=== PATIENT | female | born 1990 | race Caucasian/White ===

== ENCOUNTER 2020-01-02 12:36 | Emergency (ER) | payer OTHER, SELFPAY ==
[2020-01-02 12:39] VITALS: BP 126/78; PULSE 101; RESP 20; TEMP 37; O2SAT 100
--- NOTE | 2020-01-02 13:00 | ED.GENADULT ---
HPI - General Adult General Chief complaint: Skin/Abscess/Foreign Body Stated complaint: pain, rash on left side Time Seen by Provider: 01/02/20 12:43 Source: patient Mode of arrival: ambulatory Limitations: no limitations History of Present Illness HPI narrative: 29-year-old female patient presents to the [facility] with complaints of a wound to the left upper abdomen that she first noticed today. Denies any fevers, body aches or chills. Patient denies any history of diabetes. Patient denies taking anything for wound pain. Patient denies any discharge coming from the wound. Related Data Home Medications Medication Instructions Recorded Confirmed sertraline [Zoloft] 100 mg PO DAILY 01/02/20 Allergies Allergy/AdvReac Type Severity Reaction Status Date / Time Penicillins Allergy Mild Swelling Verified 01/02/20 12:50 Review of Systems Review of Systems: Narrative: CONSTITUTIONAL: Denies fever, chills, or sweats. EYES: Denies visual changes, redness, or discharge. ENT: Denies rhinorrhea, congestion, sore throat, or otalgia. CARDIOVASCULAR: Denies chest pain, palpitations, or edema. RESPIRATORY: Denies cough or dyspnea. GASTROINTESTINAL: Denies abdominal pain, nausea, vomiting, or diarrhea. GENITOURINARY: Denies dysuria or hematuria. SKIN: Denies rash or itching. Positive wound to the left upper abdomen/under left breast that started this morning. MUSCULOSKELETAL: Denies back pain, joint pain, or myalgia. NEUROLOGIC: Denies headache, numbness, or weakness. PSYCHIATRIC: Denies anxiety or depression. [facility] Social History Social History Gender identity (if verbalized by the patient): Female Comments At the time of my signature I agree with nursing past medical history, surgical, social, and family history. There is no relevant family history pertinent to the presenting complaint. Exam Narrative: Exam Narrative: GENERAL: Well-appearing, well-nourished, and in no acute distress. HEAD: Normocephalic, atraumatic. EYES: PERRLA and EOMI. ENT: Nares clear, no rhinorrhea or epistaxis. Mucous membranes moist. NECK: Supple. No lymphadenopathy CHEST: Clear to auscultation. No respiratory distress. HEART: Regular rate and rhythm. No murmur heard. Normal peripheral pulses. ABDOMEN: Soft, nontender, nondistended, normal active bowel sounds. EXTREMITIES: Normal range of motion. No edema. SKIN: Warm, dry, no rash. Patient has a cellulitis area noted to the left upper abdomen right under the left breast approximately 5 cm circumference. It is slightly warm to the touch. Does appear that should there is a small scratch to the center of the area. No obvious abscess noted. NEURO: No focal deficits. Alert and oriented x3. Course Vital Signs Vital signs: Vital Signs Temperature 37.0 C 01/02/20 12:39 Pulse Rate 101 H 01/02/20 12:39 Respiratory Rate 01/02/20 12:39 Blood Pressure 126/78 01/02/20 12:39 Pulse Oximetry 100 01/02/20 12:39 Temperature 37.0 C 01/02/20 12:39 Pulse Rate 101 H 01/02/20 12:39 Respiratory Rate 01/02/20 12:39 Blood Pressure 126/78 01/02/20 12:39 Pulse Oximetry 100 01/02/20 12:39 Vital signs reviewed. Medical Decision Making Differential Diagnosis Differential Diagnosis: Differential diagnosis: Contact dermatitis, poison [place]ia, poison sumac, psoriasis, eczema, allergic reaction, drug reaction, scabies, tinea syphilis, lung disease, viral exanthema, pityriasis, erythema multiforme. Discussed with patient does appear to be most likely a cellulitis infection from probably a scratch that she had to the area. Discussed with patient we will discharge her home with some antibiotics for the infection and she should follow-up with her primary doctor as needed. Patient verbalized understanding denies any other questions or concerns at this time. Vital Signs Vital Signs: Vital Signs Temperature 37.0 C 01/02/20 12:39 Pu
[2020-01-02] MEDS: CLINDAMYCIN HCL 150 MG CAP 300 MG PO (13:26)
[2020-01-02 13:40] VITALS: BP 114/20; PULSE 95; RESP 20; O2SAT 100
== END 2020-01-02 13:42 | disposition home or self-care (01) ==
LOC: ANHED 13:16
PROVIDERS: Emergency Provider Nurse Practitioner Family
DX: L03.311 Cellulitis of abdominal wall (principal)
CPT/HCPCS: 99283; A9270

== ENCOUNTER 2020-01-03 22:46 | Observation (INO) | payer OTHER, SELFPAY ==
--- NOTE | ~2020-01-03 | US_ITS ---
EXAMINATION: US soft tissue abdomen DATE: 01/04/2020 12:16 INDICATION: Dominant wall cellulitis. TECHNIQUE: Multiple grayscale and Doppler ultrasound images of the region of concern at the left uppe r abdominal wall were obtained. COMPARISON: None FINDINGS: There is a small linear tract of decreased echogenicity extending obliquely 2.5 cm deep from the skin surface and measuring 3 x 5 mm in orthogonal dimensions. No evident associated radiopaque foreign cheryl dy. There is an approximately 8 mm long thin linear specular reflector in the subcutaneous fat along side the hypoechoic tract. The suspected foreign body is approximately 8 mm deep to the skin surface. Heterogeneous increased echogenicity of the stranding subcutaneous tissues suggesting edema. No drai nable abscess. IMPRESSION: 1. Hypoechoic tract in the subcutaneous fat extending through a region of edema consistent with given history of cellulitis. Suggestion of a faint 8 mm linear foreign body which could represent a splint er or needle fragment. Correlate clinically for history or signs of associated puncture injury. Reviewed, dictated and finalized at location A. IMPRESSION: 1. Hypoechoic tract in the subcutaneous fat extending through a region of edema consistent with given history of cellulitis. Suggestion of a faint 8 mm linear foreign body which could represent a splinter or needle fragment. Correlate cl inically for history or signs of associated puncture injury.
[2020-01-03 22:51] VITALS: BP 112/71; PULSE 117; RESP 15; TEMP 37.9; O2SAT 100
[2020-01-03] MEDS: SODIUM CHLORIDE 0.9% IV 1,000 ML 999 ML IV CONT (23:06)
--- NOTE | 2020-01-03 23:13 | ECG_ITS ---
Measurements Intervals [place] Rate: 112 P: 42 NC: 130 QRS: 18 QRSD: 98 T: 37 QT: 303 QTc: 415 Interpretive Statements SINUS TACHYCARDIA MINIMAL Q WAVES- HIGH LATERAL LEADS NONSPECIFIC ST & T-WAVE ABNORMALITY- DIFFUSE LEADS ABNORMAL ECG Electronically Signed On 01-04-2020 7:50:41 CDT by Loki Riggins D.O.
[2020-01-03 23:17] VITALS: BP 117/66; PULSE 109; RESP 16; TEMP 37.9; O2SAT 97
[2020-01-03 23:24] LABS: Basophils Percent Auto 0.2 % (0.2-1.2); Eosinophils Absolute Auto 0.2 K/mm3 (0-0.3); Eosinophils Percent Auto 1.1 % (0-4.4); Hematocrit 37.1 % (37.0-47.0); Hemoglobin 12.7 g/dL (12.0-15.0); Immature Granulocyte Absolute 0.07 K/mm3 (0.00-0.031); Immature Granulocyte Percent A 0.4 % (0-0.5); Lymphocytes Absolute Auto 0.88 K/mm3 (0.9-3.2); Lymphocytes Percent Auto 5.5 % (18.3-44.2); Mean Corpuscular HGB Conc 34.2 g/dl (32-36); Mean Corpuscular Hemoglobin 28.8 pg (26-34); Mean Corpuscular Volume 84.1 fl (80-100); Mean Platelet Volume 11.8 fl (7.4-10.4); Monocytes Absolute Auto 0.9 K/mm3 (0.1-0.6); Monocytes Percent Auto 5.6 % (2.6-8.5); Neutrophils Percent Auto 87.2 % (45.5-73.1); Platelet Count Result 200 k/mm3 (150-375); Red Blood Count 4.41 M/mm3 (4.2-5.4); Red Cell Distribution Width 12.5 % (11.5-14.5)
[2020-01-03 23:29] LABS: INR 1.1; Prothrombin Time 13.9 Seconds (11.1-14.7)
[2020-01-03 23:30] LABS: Partial Thromboplastin Time 27.8 SECONDS (22.3-36.8)
[2020-01-03 23:33] LABS: Alanine Aminotransferase 26 U/L (4-35); Albumin Level 4.1 g/dL (3.5-5.1); Alkaline Phosphatase 109 U/L (38-126); Aspartate Amino Transferase 35 U/L (14-36); Bilirubin,Total 0.5 mg/dL (0.2-1.3); Blood Urea Nitrogen 13 mg/dL (7-17); CRP 6.7 mg/dL (<1.0); Calcium 9.4 mg/dL (8.4-10.2); Carbon Dioxide 22 mmol/L (22-30); Chloride 103 mmol/L (98-107); Estimated Glomerular Filt Rate > 60; Glucose 125 mg/dL (65-105); Lactic Acid Reflex 1.3 mmol/L (0.7-2.1); Potassium 3.5 mmol/L (3.4-5.0); Sodium 136 mmol/L (137-145)
--- NOTE | 2020-01-03 23:45 | ED.FEVER ---
HPI - Fever General Chief Complaint: Fever Stated Complaint: Fever Time Seen by Provider: 01/03/20 23:01 History of Present Illness HPI Narrative: Patient is a 29-year-old female who presents the ER with a fever of 103 ?F. Seen yesterday for discomfort to her abdominal wall. Diagnosed with cellulitis. Started on clindamycin. She has been compliant with medication however her pain to abdominal wall is increased and she started developing high fever so she return the ER for further evaluation. No nausea/vomiting/shortness of breath. No drainage or pustules. Reports she had a little scrape that then became secondarily infected. Other individuals in her home have also had skin infections. Related Data Home Medications Medication Instructions Recorded Confirmed sertraline [Zoloft] 100 mg PO HS 01/02/20 01/04/20 ibuprofen 600 mg PO Q4-6H PRN 01/04/20 01/04/20 Allergies Allergy/AdvReac Type Severity Reaction Status Date / Time Penicillins Allergy Mild Swelling Verified 01/03/20 22:58 Review of Systems Review of Systems: All systems reviewed & are unremarkable except as noted in HPI and below Constitutional: Constitutional: Denies chills, Denies fatigue and Reports fever(s) Integumentary/Breasts: Skin/Breast: Reports erythema Comments: Abdominal wall pain PMFSH Past Medical History Medical History Anxiety Surgical History Surgical History Previous section Family History Family History Father Diabetes mellitus Hypertension Chronic obstructive pulmonary disease Lung cancer Mother Hypertension Social History Social History Years smoked: 1 Smoking status: Former smoker Tobacco type: cigarettes Alcohol intake: current Drinks per week: 3 Substance use type: marijuana Last use: unknown Gender identity (if verbalized by the patient): Female Spiritual care concerns: No Exam Narrative: Exam Narrative: GENERAL: Well-appearing, well-nourished, and in no acute distress. HEAD: Normocephalic, atraumatic. ENT: Mucous membranes moist. CHEST: Clear to auscultation. No respiratory distress. HEART: Regular rate and rhythm. Normal peripheral pulses. ABDOMEN: Soft, nontender, nondistended. EXTREMITIES: Normal range of motion. No edema. SKIN: Warm, dry. Cellulitis left anterior abdominal wall beneath the breast. Central area of skin breakdown without ulceration or purulent drainage. No fluctuance noted. The skin is hard and tender. NEURO: No focal deficits. Alert and oriented x3. PSYCH: Normal mood and affect. Course Course Emergency Course: Admit for IV abx. Vital Signs Vital signs: Vital Signs Temperature 100.2 F H 01/03/20 22:51 Pulse Rate 117 H 01/03/20 22:51 Respiratory Rate 15 01/03/20 22:51 Blood Pressure 112/71 01/03/20 22:51 Pulse Oximetry 100 01/03/20 22:51 Temperature 97.7 F 01/05/20 06:07 Pulse Rate 104 H 01/05/20 08:00 Respiratory Rate 16 01/05/20 08:00 Blood Pressure 108/67 01/05/20 06:07 Pulse Oximetry 95 01/05/20 08:00 MDM - Fever Lab Data Result diagrams: 01/05/20 07:52 01/05/20 07:52 Labs: Lab Results 01/03/20 01/03/20 01/03/20 Range/Units 23:08 23:08 23:08 WBC 16.0 H (4.5-10.0) K/mm3 RBC 4.41 (4.2-5.4) M/mm3 Hgb 12.7 (12.0-15.0) g/dL Hct 37.1 (37.0-47.0) % MCV 84.1 (80-100) fl MCH 28.8 (26-34) pg MCHC 34.2 (32-36) g/dl RDW 12.5 (11.5-14.5) % Plt Count 200 (150-375) k/mm3 MPV 11.8 H (7.4-10.4) fl Immature Gran % (Auto) 0.4 (0-0.5) % Neut % (Auto) 87.2 H (45.5-73.1) % Lymph % (Auto) 5.5 L (18.3-44.2) % [place] % (Auto) 5.6 (2.6-8.5) % Eos % (Auto) 1.1 (0-4.4) % Baso % (Auto) 0.2 (
[2020-01-04] VITALS (19 sets, daily range): BP systolic 99–131; BP diastolic 51–71; PULSE 82–137; RESP 15–20; TEMP 36.6–39.4; O2SAT 95–100; BMI 33.2
[2020-01-04] MEDS: ONDANSETRON INJ 4 MG/2 ML VIAL IV PUSH ×3 (00:19→11:32)
[2020-01-04] MEDS: MORPHINE SULFATE 4 MG/ML INJ IV PUSH ×4 (00:26→11:32)
--- NOTE | 2020-01-04 00:40 | ADMGEN ---
This patient, Narda Hawthorne, was admitted to Medical Room 340-01. Patient/family oriented to hospital policies and general routines including ID bracelet, bed and alarms, visiting hours, pain management, procedures, bathroom and other care routines, personal items, smoking policy, room service/diet, and visiting hours. Valuables list has been completed. Information on how to activate the Rapid Response Team has been discussed. Patient/Family are encouraged to report perceived risks to care and to ask questions if they do not understand what they are told or what they should do.
--- NOTE | 2020-01-04 03:09 | PM.IMHP ---
H&P: HPI History of Present Illness Chief complaint: Cellulitis Narrative: This is a 29 year old female known to take Sertraline for anxiety who presented to the hospital for a return visit for abdominal wall cellulitis. She was seen in the ER yesterday after she presented with redness of her LUQ and sent home with Clindamycin PO. Today she developed a fever of 103 degrees F and decided to come back to the hospital as her cellulitic area had worsened and become more swollen, indurated and painful. She has no previous history of skin infections although she reports that her daughter was just recently treated for a Staph infection which required I and D. She had some mild drainage from her cellulitis today. She denies any nausea, vomiting, diarrhea or other symptoms. The patient was admitted to the hospital for further care. Review of Systems Review of Systems: All systems reviewed & are unremarkable except as noted in HPI and below PMFSH Past Medical History Medical History Anxiety Surgical History Surgical History Previous section Family History Family History Father Diabetes mellitus Hypertension Chronic obstructive pulmonary disease Lung cancer Mother Hypertension Social History Social History Years smoked: 1 Smoking status: Former smoker Tobacco type: cigarettes Alcohol intake: current Drinks per week: 3 Substance use type: marijuana Last use: unknown Gender identity (if verbalized by the patient): Female Spiritual care concerns: No Meds Home Medications and Allergies Home Medications Medication Instructions Recorded Confirmed Type clindamycin HCl 300 mg PO BID 7 Days #14 cap 01/02/20 01/04/20 Rx sertraline [Zoloft] 100 mg PO HS 01/02/20 01/04/20 History ibuprofen 600 mg PO Q4-6H PRN 01/04/20 01/04/20 History Allergies Allergy/AdvReac Type Severity Reaction Status Date / Time Penicillins Allergy Mild Swelling Verified 01/03/20 22:58 Vital Signs Vital Signs - 24 hr 01/03/20 22:51 01/03/20 23:17 01/04/20 00:00 Temperature 37.9 C H 37.9 C H 37.4 C Pulse Rate 117 H 109 H 97 Respiratory Rate 15 16 18 Blood Pressure 112/71 117/66 129/69 Pulse Oximetry 100 97 97 01/04/20 00:45 Temperature 37.3 C Pulse Rate 102 H Respiratory Rate 16 Blood Pressure 118/68 Pulse Oximetry 99 Exam Const: General: cooperative, alert and awake Nutritional Appearance: well nourished Orientation/consciousness: patient oriented x3 HENMT: Head: normal to inspection General nose exam: Normal external nose present Face and sinus: normal facial exam Mouth: Yes Normal oral and palatal mucosa present and Yes oropharynx normal Eyes: Pupils: Equal, round and reactive pupils present EOM: EOMs intact bilaterally Neck: Neck: supple and no JVD Thyroid: thyroid normal Lymphatic: lymphadenopathy not noted Resp: Effort & Inspection: normal respiratory effort Auscultation: clear to auscultation bilaterally Cardio: Rate: regular rate Rhythm: regular rhythm Heart sounds: no murmurs GI: Inspection: normal to inspection Auscultation: normal bowel sounds Skin: General skin exam: other (LUQ - area of 5x7 cm which is erythematous and indurated++ Tender to touch) Neuro: Cranial nerves: Yes CN's II-XII intact bilaterally and Yes Equal, round and reactive pupils present Speech: normal speech Motor exam (neuro): 5/5 motor strength present throughout Sensory Exam: normal sensation Extrem: General: normal to inspection and no edema Psych: Mental Status: mental status grossly normal Affect: normal affect H&P: Results Labs Labs: Short CBC 01/03/20 Range/Units 23:08 WBC 16.0 H (4.5-10.0) K/mm3 Hgb 12.7 (12.0-15.0) g/dL Hct 37.1 (37.0-47.0) % Plt
[2020-01-04 06:09] LABS: Basophils Percent Auto 0.2 % (0.2-1.2); Eosinophils Absolute Auto 0.3 K/mm3 (0-0.3); Eosinophils Percent Auto 1.6 % (0-4.4); Hematocrit 34.7 % (37.0-47.0); Hemoglobin 11.6 g/dL (12.0-15.0); Immature Granulocyte Absolute 0.13 K/mm3 (0.00-0.031); Immature Granulocyte Percent A 0.8 % (0-0.5); Lymphocytes Absolute Auto 2.02 K/mm3 (0.9-3.2); Lymphocytes Percent Auto 12.1 % (18.3-44.2); Mean Corpuscular HGB Conc 33.4 g/dl (32-36); Mean Corpuscular Hemoglobin 28.8 pg (26-34); Mean Corpuscular Volume 86.1 fl (80-100); Mean Platelet Volume 11.3 fl (7.4-10.4); Monocytes Absolute Auto 1.1 K/mm3 (0.1-0.6); Monocytes Percent Auto 6.7 % (2.6-8.5); Neutrophils Absolute Auto 13.2 K/mm3 (1.3-6.7); Neutrophils Percent Auto 78.6 % (45.5-73.1); Platelet Count Result 181 k/mm3 (150-375); Red Blood Count 4.03 M/mm3 (4.2-5.4); Red Cell Distribution Width 12.5 % (11.5-14.5); White Blood Count 16.8 K/mm3 (4.5-10.0)
[2020-01-04 06:20] LABS: Blood Urea Nitrogen 11 mg/dL (7-17); Calcium 8.6 mg/dL (8.4-10.2); Carbon Dioxide 26 mmol/L (22-30); Chloride 105 mmol/L (98-107); Estimated CRCL calculation 106 ml/min; Estimated Glomerular Filt Rate > 60; Glucose 104 mg/dL (65-105); Potassium 3.6 mmol/L (3.4-5.0); Sodium 136 mmol/L (137-145)
--- NOTE | 2020-01-04 09:09 | PM.CNGS ---
Assessment and Plan Assessment and plan (1) Abscess of abdominal wall: Code(s): L02.211 - Cutaneous abscess of abdominal wall Status: Acute Assessment and Plan: Will get ultrasound to further defined abscess, continue antibiotics, will need surgical drainage (2) Leukocytosis: Qualifiers: Leukocytosis type: unspecified Qualified Code(s): D72.829 - Elevated white blood cell count, unspecified Code(s): D72.829 - Elevated white blood cell count, unspecified Status: Acute Assessment and Plan: continue IV antibiotics, will plan surgical drainage in the operating (3) Anxiety: Code(s): F41.9 - Anxiety disorder, unspecified Status: Chronic Assessment and Plan: management per primary team History of Present Illness Consult details Consult date: 01/04/20 Reason for consult: wound care Requesting physician: Tani Hyatt MD Narrative: Patient is a 29-year-old female presenting to the hospital complaining of pain and swelling in her left upper abdominal wall. The patient reports that this has been going on over the last few days and has been progressively worsening. The patient reports that it started with some redness in her left upper abdominal wall and has now progressed to severe swelling and pain. The patient also reports some mild purulence drainage over the last day. Patient reports fevers up to 103 at home. The patient was started on antibiotics, however no improvement was noted. The patient denies any previous episodes. Review of Systems Constitutional: Constitutional: Denies anorexia, Reports chills, Denies fatigue, Denies headache(s), Denies malaise, Denies poor appetite, Denies weakness, Denies weight gain and Denies weight loss Eyes: Eyes: Reports no additional eye complaints and Denies loss of vision ENT: Reports Normal hearing present, Denies dysphagia, Denies headache(s), Denies hearing loss and Denies sore throat Cardiovascular: Cardiovascular: Denies chest pain, Denies syncope, Denies irregular heart rhythm, Denies leg edema, Denies palpitations and Denies dyspnea Respiratory: Respiratory: Denies cough and Denies dyspnea Gastrointestinal: Gastrointestinal: Reports abdominal pain, Denies bloating, Denies change in bowel habits, Denies change in stool character, Denies constipation, Denies dysphagia, Denies heartburn, Denies diarrhea, Denies nausea and Denies vomiting Genitourinary: Genitourinary: Denies urinary frequency, Denies dysuria and Denies urinary urgency Musculoskeletal: Musculoskeletal: Denies myalgias, Denies arthralgias and Denies muscle cramps Integumentary/Breasts: Skin/Breast: Denies non-healing lesions, Reports erythema, Denies rash and Reports wounds Neurologic: Denies syncope, Denies headache(s) and Denies loss of vision Endocrine: Endocrine: Denies change in body appearance and Denies fatigue Hematologic/Lymphatic: Hematologic/Lymphatic: Denies easy bleeding, Denies easy bruising and Denies lymphadenopathy PMFSH Past Medical History Medical History Anxiety Surgical History Surgical History Previous section Family History Family History Father Diabetes mellitus Hypertension Chronic obstructive pulmonary disease Lung cancer Mother Hypertension Social History Social History Years smoked: 1 Smoking status: Former smoker Tobacco type: cigarettes Alcohol intake: current Drinks per week: 3 Substance use type: marijuana Last use: unknown Gender identity (if verbalized by the patient): Female Spiritual care concerns: No Meds Home Medications and Allergies Home Medications Medication Instructions Recorded Confirmed Type clindamycin HCl 300 mg PO BID 7 Days #14 c
[2020-01-04 11:18] LABS: Beta HCG Quantitative < 2.39 mIU/ML
--- NOTE | 2020-01-04 12:45 | PC.NURSE ---
Verbal report given to [facility] RN and patient taken to OR via bed. Spouse at bedside. Voiding without difficulty.
[2020-01-04] MEDS: LACTATED RINGERS 1,000 ML 30 ML IV CONT ×2 (13:00→15:03)
--- NOTE | 2020-01-04 13:11 | WPDANESEPPF ---
Anes - Initial Pre Proc Eval Procedure: Operation Date: 01/04/20 14:00 Proposed Procedures p COMPLEX INCISION AND DRAINAGE OF LEFT UPPER ABDOMINAL WALL ABSCESS - Gay Ingram MD Date/Time: 01/04/20 13:11 Surgeon: Tani Hyatt MD Pre Op Diagnosis: Cellulitis Patient Data Age: 29 Gender: F Height: 5 ft 3 in Weight: 85.1 kg Last Vital Signs Temp 36.7 C 01/04/20 04:15 Pulse 82 01/04/20 04:15 Resp 16 01/04/20 08:15 BP 116/51 L 01/04/20 04:15 Pulse Ox 100 01/04/20 08:15 Allergies Allergy/AdvReac Type Severity Reaction Status Date / Time Penicillins Allergy Mild Swelling Verified 01/03/20 22:58 Home Medications Medication Instructions Recorded Confirmed Type clindamycin HCl 300 mg PO BID 7 Days #14 cap 01/02/20 01/04/20 Rx sertraline [Zoloft] 100 mg PO HS 01/02/20 01/04/20 History ibuprofen 600 mg PO Q4-6H PRN 01/04/20 01/04/20 History Laboratory Tests 01/03/20 01/03/20 01/03/20 23:08 23:08 23:08 WBC 16.0 K/mm3 H K/mm3 (4.5-10.0) RBC 4.41 M/mm3 M/mm3 (4.2-5.4) Hgb 12.7 g/dL g/dL (12.0-15.0) Hct 37.1 % % (37.0-47.0) MCV 84.1 fl fl (80-100) MCH 28.8 pg pg (26-34) MCHC 34.2 g/dl g/dl (32-36) RDW 12.5 % % (11.5-14.5) Plt Count 200 k/mm3 k/mm3 (150-375) MPV 11.8 fl H fl (7.4-10.4) Immature Gran % (Auto) 0.4 % % (0-0.5) Neut % (Auto) 87.2 % H % (45.5-73.1) Lymph % (Auto) 5.5 % L % (18.3-44.2) [place] % (Auto) 5.6 % % (2.6-8.5) Eos % (Auto) 1.1 % % (0-4.4) Baso % (Auto) 0.2 % % (0.2-1.2) Lymph # (Auto) 0.88 K/mm3 L K/mm3 (0.9-3.2) [place] # (Auto) 0.9 K/mm3 H K/mm3 (0.1-0.6) Eos # (Auto) 0.2 K/mm3 K/mm3 (0-0.3) Baso # (Auto) 0.0 K/mm3 K/mm3 (0.0-0.1) Abs Immat Gran (auto) 0.07 K/mm3 H K/mm3 (0.00-0.031) Absolute Neuts (auto) 14.0 K/mm3 H K/mm3 (1.3-6.7) Absolute Nucleated RBC 0.0 K/mm3 K/mm3 (0.0-0.012) Nucleated RBC % 0.0 % % (0.0-0.2) PT 13.9 Seconds Seconds (11.1-14.7) INR 1.1 APTT 27.8 SECONDS SECONDS (22.3-36.8) Sodium 136 mmol/L L mmol/L (137-145) Potassium 3.5 mmol/L mmol/L (3.4-5.0) Chloride 103 mmol/L mmol/L (98-107) Carbon Dioxide 22 mmol/L mmol/L (22-30) BUN 13 mg/dL mg/dL (7-17) Creatinine 0.80 mg/dL mg/dL (0.7-1.0) Estim Creat Clear Calc Not Reportable Estimated GFR > 60 (59 - ) Glucose 125 mg/dL H mg/dL (65-105) Lactic Acid Calcium 9.4 mg/dL mg/dL (8.4-10.2) Total Bilirubin 0.5 mg/dL mg/dL (0.2-1.3) AST 35 U/L U/L (14-36) ALT 26 U/L U/L (4-35) Alkaline Phosphatase 109 U/L U/L (38-126) C-Reactive Protein 6.7 mg/dL H mg/dL (<1.0) Total Protein 7.0 g/dL g/dL (6.3-8.2) Albumin 4.1 g/dL g/dL (3.5-5.1) Beta HCG, Quant 01/03/20 01/04/20 01/04/20 23:08 05:52 05:54 WBC 16.8 K/mm3 H K/mm3 (4.5-10.0) RBC 4.03 M/mm3 L M/mm3 (4.2-5.4) Hgb 11.6 g/dL L g/dL (12.0-15.0) Hct 34.7 % L % (37.0-47.0) MCV 86.1 fl fl (80-100) MCH 28.8 pg pg (26-34) MCHC 33.4 g/dl g/dl (32-36) RDW 12.5 % % (11.5-14.5) Plt Count 181 k/mm3 k/mm3 (150-375) MPV 11.3 fl H fl (7.4-10.4) Immature Gran % (Auto) 0.8 % H % (0-0.5) Neut % (Auto) 78.6 % H % (45.5-73.1) Lymph % (Auto) 12.1 % L % (18.3-44.2) [place] % (Auto) 6.7 % % (2.6-8.5) Eos % (Auto) 1.6 % % (0-4.4) Baso % (Auto) 0.2 % % (0.2-1.2) Lymph # (Auto) 2.02 K/mm3 K/mm3 (0.9-3.2) [place] # (Auto) 1.1 K/mm3 H K/mm3
[2020-01-04] MEDS: BUPIVACAINE/EPINEPHRINE 0.5% 30 ML VIAL 20 ML INFILTRATE (14:36)
--- NOTE | 2020-01-04 14:36 | SUR.OPER ---
culture given to thompson in lab at 0931
--- NOTE | 2020-01-04 14:47 | PM.PROC ---
Procedure Note - Detailed Date of procedure: 01/04/20 Pre-op diagnosis: Cellulitis left upper quadrant abdominal wall abscess, cellulitis Post-op diagnosis: same Procedure performed: complex incision and drainage left upper quadrant abdominal wall abscess measuring approximately 12 x 10 cm Description of procedure: The patient was taken to the operating room placed in the supine position. After adequate induction of general anesthesia, the patient was prepped and draped in the normal sterile fashion. A time-out was then done to verify the patient's identity, as well as the procedure being performed. I began by localizing the area in and around this large abscess in the left upper quadrant. There was noted to be an area of necrosis in the middle of this abscess that was draining some purulent fluid. I made an incision with a 15 blade scalpel over this area and immediately a large amount of purulent drainage was noted. I obtained sterile cultures at this point. I then used a hemostat to bluntly dissect around this cavity and broke up some loculations and further purulent drainage was noted. A large amount of fat necrosis was also noted. This cavity was noted to encompass the subcutaneous tissue and overlying skin however, did not involve the underlying fascia or muscle. The final measurements of the cavity were approximately 12 x 10 x 6 cm. Once the area was fully open and draining, I copiously irrigated the cavity. I then packed the cavity with 1 in iodoform packing to keep the area open, approximately 3-1/2 feet packing was used. Sterile dressing was then placed. Patient tolerated the procedure well and will be transferred to the recovery room in stable condition. Implants: 3-1/2 feet 1 in iodoform packing Anesthesia: GETA Surgeon: Gay Ingram MD Estimated blood loss (mL): 5 Drains: No Packing: Yes Pathology: none sent Complications: No immediate complications Condition: stable Disposition: PACU Findings: large cavity measuring approximately 12 x 10 x 6 cm, large amount of purulence drainage, fat necrosis
--- NOTE | 2020-01-04 15:26 | SUR.PHASEI ---
1525 pt running a fever 101.2-102 post surgery, cool rags on pt getting iv fluids, hr-115-125, b p stable headache 4/[address] sales notified, treat upstairs with po tylenol
--- NOTE | 2020-01-04 15:30 | SUR.PHASEI ---
1530 sbar faxed floor notified
--- NOTE | 2020-01-04 15:32 | PM.IMPN ---
Progress Note: A&P Assessment and Plan (1) Cellulitis of abdominal wall: Code(s): L03.311 - Cellulitis of abdominal wall Status: Acute Assessment and Plan: Ancef IV given initially but will switch to vancomycin to cover for MRSA also., General Surgery took to OR today for I and D. Blood cultures pending. Blood sugar borderline so check A1c (2) Anxiety: Code(s): F41.9 - Anxiety disorder, unspecified Status: Chronic Assessment and Plan: Continue Sertraline PO. (3) Sepsis: Code(s): A41.9 - Sepsis, unspecified organism Status: Acute Assessment and Plan: With leukocytosis, tachycardia, and now fevers she meets the criteria for sepsis. Pressure well controlled continue to monitor Subjective Date/time seen: 01/04/20 15:32 Interval history: Date of visit 01/03. 29-year-old healthy white female admitted with cellulitis and abscess of left upper abdominal wall with no precipitating factors noted. Surgery has seen and taken to the OR today for I and D Exam Narrative: Exam Narrative: Blood pressure 114/62 pulse is 110 afebrile at 36.6 Pupils equal reactive to light sclera anicteric Lungs clear CV regular rate rhythm tachy with no murmurs Abdomen is soft bowel sounds normal active in the left upper quadrant just under the costal margin person indurated tender area with small amount of drainage probably at least 6 x 8 cm Extremities without edema distal pulses are 2+ Objective Data Vital Signs Vital Signs: Vital Signs - 24 hr 01/03/20 22:51 01/03/20 23:17 01/04/20 00:00 Temperature 37.9 C H 37.9 C H 37.4 C Pulse Rate 117 H 109 H 97 Respiratory Rate 15 16 18 Blood Pressure 112/71 117/66 129/69 Pulse Oximetry 100 97 97 01/04/20 00:45 01/04/20 04:15 01/04/20 08:15 Temperature 37.3 C 36.7 C Pulse Rate 102 H 82 Respiratory Rate 16 16 16 Blood Pressure 118/68 116/51 L Pulse Oximetry 99 100 100 01/04/20 13:00 01/04/20 14:40 01/04/20 14:55 Temperature 38.1 C H 36.6 C Pulse Rate 137 H 116 H 115 H Respiratory Rate 18 16 20 Blood Pressure 111/71 99/52 L 100/55 L Pulse Oximetry 97 98 100 01/04/20 15:00 01/04/20 15:15 Temperature Pulse Rate 122 H 124 H Respiratory Rate 20 18 Blood Pressure 109/58 L 114/63 Pulse Oximetry 100 99 Intake/Output Intake/Output: Intake & Output 01/01/20 01/02/20 01/03/20 01/04/20 23:59 23:59 23:59 23:59 Intake Total 2350 Output Total 750 Balance 1600 Meds/Results Medications: Active Medications Generic Name Dose Route Start Last Admin Trade Name Freq PRN Reason Stop Dose Admin Acetaminophen 650 mg 01/03/20 23:56 Tylenol Tablet PO Q4H PRN Mild Pain (1-3) or Fever Hydrocodone Bitart/Acetaminophen 1 tab 01/03/20 23:56 01/04/20 06:25 [place] 5-325 Mg PO 1 tab Q4H PRN Administration Pain Rated 4-6 Fentanyl Citrate 25 mcg 01/04/20 13:12 01/04/20 15:17 Sublimaze IV PUSH 25 mcg Q2M PRN Administration Pain Cefazolin Sodium 1 gm in 50 mls @ 100 mls/hr 01/04/20 06:00 01/04/20 14:35 Ancef 1 Gm/D5w 50 Ml Pm IVPB Infused Q8HR MIAH Infusion Lactated Ringer's 1,000 mls @ 30 mls/hr 01/04/20 13:15 01/04/20 15:02 Lr - Lactated Ringers Iv IV CONT Infused .Q24H MIAH Infusion Lactated Ringer's 1,000 mls @ 30 mls/hr 01/04/20 13:15 01/04/20 15:03 Lr - Lactated Ringers Iv IV CONT 30 mls/hr .Q24H MIAH Administration Morphine Sulfate 4 mg 01/03/20 23:56 01/04/20 11:32 Morphine Sulfate Inj IV PUSH 4 mg Q2H PRN Administration Pain Rated 7-10 Ondansetron HCl 4 mg 01/03/20 23:56 01/04/20 11:32 Zofran Inj IV PUSH 4 mg Q4H PRN Administration Nausea Ondansetron HCl 4 mg 01/04/20 13:12 Zofran Inj IV PUSH ONCE PRN Nausea Sertraline HCl 100 mg 01/04/20 21:00 Zoloft PO HS MIAH Radiology Results: ITS Impressions Soft Tissue Ultrasound 01/04/20 12:21 IMPRESSION: 1. Hypoechoic tract
--- NOTE | 2020-01-04 15:55 | PCDIET ---
Returned from OR via bed. at bedside.
[2020-01-04] MEDS: ACETAMINOPHEN 325 MG TABLET 650 MG PO (16:12)
[2020-01-04] MEDS: ENOXAPARIN 40 MG/0.4 ML SYRINGE SUB-Q (20:24)
[2020-01-04] MEDS: SERTRALINE HCL 50 MG TABLET 100 MG PO (20:24)
[2020-01-05 00:15] VITALS: BP 129/63; PULSE 102; RESP 20; TEMP 37.2; O2SAT 97
[2020-01-05 06:07] VITALS: BP 108/67; PULSE 104; RESP 16; TEMP 36.5; O2SAT 95
[2020-01-05 08:00] VITALS: PULSE 104; RESP 16; O2SAT 95
[2020-01-05 08:15] LABS: Basophils Percent Auto 0.1 % (0.2-1.2); Eosinophils Absolute Auto 0.1 K/mm3 (0-0.3); Eosinophils Percent Auto 0.8 % (0-4.4); Hematocrit 33.2 % (37.0-47.0); Hemoglobin 11.2 g/dL (12.0-15.0); Immature Granulocyte Absolute 0.15 K/mm3 (0.00-0.031); Immature Granulocyte Percent A 0.9 % (0-0.5); Lymphocytes Absolute Auto 0.78 K/mm3 (0.9-3.2); Lymphocytes Percent Auto 4.7 % (18.3-44.2); Mean Corpuscular HGB Conc 33.7 g/dl (32-36); Mean Corpuscular Hemoglobin 28.9 pg (26-34); Mean Corpuscular Volume 85.6 fl (80-100); Mean Platelet Volume 11.5 fl (7.4-10.4); Monocytes Absolute Auto 0.9 K/mm3 (0.1-0.6); Monocytes Percent Auto 5.3 % (2.6-8.5); Neutrophils Absolute Auto 14.5 K/mm3 (1.3-6.7); Neutrophils Percent Auto 88.2 % (45.5-73.1); Platelet Count Result 179 k/mm3 (150-375); Red Blood Count 3.88 M/mm3 (4.2-5.4); Red Cell Distribution Width 12.4 % (11.5-14.5); White Blood Count 16.4 K/mm3 (4.5-10.0)
[2020-01-05 08:23] LABS: Blood Urea Nitrogen 10 mg/dL (7-17); Calcium 8.2 mg/dL (8.4-10.2); Carbon Dioxide 27 mmol/L (22-30); Chloride 102 mmol/L (98-107); Estimated CRCL calculation 122 ml/min; Estimated Glomerular Filt Rate > 60; Glucose 121 mg/dL (65-105); Potassium 3.3 mmol/L (3.4-5.0); Sodium 136 mmol/L (137-145)
[2020-01-05] MEDS: CEPHALEXIN 500 MG CAPSULE PO (09:02)
--- NOTE | 2020-01-05 09:15 | PM.PNGS ---
Progress Note: A&P Assessment and Plan (1) Abscess of abdominal wall: Code(s): L02.211 - Cutaneous abscess of abdominal wall Status: Acute Assessment and Plan: doing well. Okay to discharge from surgical standpoint. No need for vancomycin. Will start patient on Keflex while in the hospital. She can go home on this or continue the clindamycin she was on before coming to the hospital. She should see Dr. Ingram in 2 weeks. Continue daily dry dressings to left upper quadrant wound. No need for packing. May shower daily. Discharge instructions written. Subjective Subjective Date/Time Seen: 01/05/20 09:15 Post Op day: 1 Patient reports: feels better Exam GI: Inspection: incision ( Packing removed, abscess well drained. Looks good) Objective Data Vital Signs Vital Signs: Vital Signs - 24 hr 01/04/20 13:00 01/04/20 14:40 01/04/20 14:55 Temperature 38.1 C H 36.6 C Pulse Rate 137 H 116 H 115 H Respiratory Rate 18 16 20 Blood Pressure 111/71 99/52 L 100/55 L Pulse Oximetry 97 98 100 01/04/20 15:00 01/04/20 15:15 01/04/20 15:30 Temperature 38.4 C H Pulse Rate 122 H 124 H 120 H Respiratory Rate 20 18 17 Blood Pressure 109/58 L 114/63 113/56 L Pulse Oximetry 100 99 100 01/04/20 15:55 01/04/20 16:05 01/04/20 16:10 Temperature 39.4 C H Pulse Rate 126 H 132 H 132 H Respiratory Rate 18 18 18 Blood Pressure 131/57 L 117/60 Pulse Oximetry 100 97 97 01/04/20 16:12 01/04/20 16:40 01/04/20 17:10 Temperature 39.4 C H 38.2 C H Pulse Rate 135 H Respiratory Rate 16 Blood Pressure 100/61 Pulse Oximetry 96 01/04/20 17:47 01/04/20 20:35 01/04/20 21:31 Temperature 38.2 C H 36.6 C Pulse Rate 127 H 100 100 Respiratory Rate 18 15 15 Blood Pressure 108/61 113/58 L Pulse Oximetry 97 95 95 01/05/20 00:15 01/05/20 06:07 Temperature 37.2 C 36.5 C Pulse Rate 102 H 104 H Respiratory Rate 20 16 Blood Pressure 129/63 108/67 Pulse Oximetry 97 95 Intake/Output Intake/Output: Intake & Output 01/02/20 01/03/20 01/04/20 01/05/20 23:59 23:59 23:59 23:59 Intake Total 3880 1080 Output Total 1150 1050 Balance 2730 30 Meds/Results Medications: Active Medications Generic Name Dose Route Start Last Admin Trade Name Freq PRN Reason Stop Dose Admin Acetaminophen 650 mg 01/03/20 23:56 01/04/20 16:12 Tylenol Tablet PO 650 mg Q4H PRN Administration Mild Pain (1-3) or Fever Hydrocodone Bitart/Acetaminophen 1 tab 01/03/20 23:56 01/05/20 09:06 [place] 5-325 Mg PO 1 tab Q4H PRN Administration Pain Rated 4-6 Enoxaparin Sodium 40 mg 01/04/20 21:00 01/04/20 20:24 Lovenox SUB-Q 40 mg HS MIAH Administration Ondansetron HCl 4 mg 01/03/20 23:56 01/04/20 11:32 Zofran Inj IV PUSH 4 mg Q4H PRN Administration Nausea Sertraline HCl 100 mg 01/04/20 21:00 01/04/20 20:24 Zoloft PO 100 mg HS MIAH Administration Radiology Results: ITS Impressions Soft Tissue Ultrasound 01/04/20 12:21 IMPRESSION: 1. Hypoechoic tract in the subcutaneous fat extending through a region of edema consistent with given history of cellulitis. Suggestion of a faint 8 mm linear foreign body which could represent a splinter or needle fragment. Correlate clinically for history or signs of associated puncture injury. Labs Labs: Laboratory Results - last 24 hr 01/04/20 01/05/20 01/05/20 05:52 07:52 07:52 WBC 16.4 H RBC 3.88 L Hgb 11.2 L Hct 33.2 L MCV 85.6 MCH 28.9 MCHC 33.7 RDW 12.4 Plt Count 179 MPV 11.5 H Immature Gran % (Auto) 0.9 H Neut % (Auto) 88.2 H Lymph % (Auto) 4.7 L [place] % (Auto) 5.3 Eos % (Auto) 0.8 Baso % (Auto) 0.1 L Lymph # (Auto) 0.78 L [place] # (Auto) 0.9 H Eos # (Auto) 0.1 Baso # (Auto) 0.0 Abs Immat Gran (auto) 0.15 H Absolute Neuts (auto) 14.5 H Absolute Nucleated RBC 0.0 Nucleated RBC % 0.0 Sodium 136 L Potassium
[2020-01-05] MEDS: POTASSIUM CHLORIDE 20 MEQ TABLET 40 MEQ PO (11:44)
--- NOTE | 2020-01-05 12:46 | PM.DS ---
DS: Admitting Diagnosis Admitting Diagnosis Admitting Diagnosis: Cellulitis of abdominal wall DS: Discharge Diagnosis Discharge Diagnosis (1) Cellulitis of abdominal wall: Code(s): L03.311 - Cellulitis of abdominal wall Status: Acute Assessment and Plan: Ancef IV given initially but switched to vancomycin to cover for MRSA also., General Surgery took to OR today for I and D. Blood cultures pending. Surgery saw today 01/04 and wound healing well. Recommended oral antibiotics and local care without packing. Discharge with cephalexin 500 Q 6 to follow-up if surgery within 2 weeks. Also she was instructed on proper wound care Hemoglobin A1c 5.0. (2) Anxiety: Code(s): F41.9 - Anxiety disorder, unspecified Status: Chronic Assessment and Plan: Continue Sertraline PO. (3) Sepsis: Code(s): A41.9 - Sepsis, unspecified organism Status: Acute Assessment and Plan: With leukocytosis, tachycardia, and fevers she met the criteria for sepsis. Pressure good with no hypotension DS: Summary Hospital Course Hospital Course: 29-year-old white female admitted with painful cellulitis and abscess of left upper quadrant. Taken to the OR by surgery on the and found to have 10 x 8 x 6 cm abscess cavity that was drained, cultured, washed out, and packed. Seen by surgery a.m. of the 18 thin doing well on fell could be discharged home with simple dressing changes to follow-up with surgery in 2 weeks. Cultures were pending and she will be discharged on cephalexin 500 q.i.d.. Hemoglobin A1c was 5.0 The time of discharge pain is subsided she is feeling much better ,afebrile for the 24 hours prior to discharge Time Spent with Patient Time attestation: Total time spent providing and/or coordinating discharge services:35 minutes Exam Narrative: Exam Narrative: Condition on discharge Blood pressure 108/66 pulse is 100 afebrile at 36.5 Lung is clear CV regular rate rhythm no murmurs Abdomen soft nontender with bandage over previously drained a lesion on left upper quadrant Extremities without edema Neuro alert pleasant cooperative no focal deficits Of relates that feels much better than yesterday tolerating diet well DS: Data Data Completed and Pending Labs on day of discharge: Labs from last 24 hours 01/05/20 01/05/20 01/05/20 07:52 07:52 07:52 WBC 16.4 H RBC 3.88 L Hgb 11.2 L Hct 33.2 L MCV 85.6 MCH 28.9 MCHC 33.7 RDW 12.4 Plt Count 179 MPV 11.5 H Immature Gran % (Auto) 0.9 H Neut % (Auto) 88.2 H Lymph % (Auto) 4.7 L [place] % (Auto) 5.3 Eos % (Auto) 0.8 Baso % (Auto) 0.1 L Lymph # (Auto) 0.78 L [place] # (Auto) 0.9 H Eos # (Auto) 0.1 Baso # (Auto) 0.0 Abs Immat Gran (auto) 0.15 H Absolute Neuts (auto) 14.5 H Absolute Nucleated RBC 0.0 Nucleated RBC % 0.0 Sodium 136 L Potassium 3.3 L Chloride 102 Carbon Dioxide 27 BUN 10 Creatinine 0.60 L Estim Creat Clear Calc 122 Estimated GFR > 60 Glucose 121 H Hemoglobin A1c 5.0 Calcium 8.2 L Preliminary micro results at discharge 01/03/20 23:08 Blood Culture - Preliminary Blood 01/03/20 23:08 Blood Culture - Preliminary Blood Discharge Plan Discharge Attending physician on discharge: Yung Estrada Consulting providers: Aubrey Dias ; Gay Ingram Discharging Clinician: Yung Estrada Patient Disposition: Home, Self-Care Activity: may shower and as tolerated Diet: regular Wound Care Instructions: keep dressing dry, remove dressing to shower and change dressing daily Discharge Instructions: Daily dry gauze dressing to left upper quadrant wound. Remove to shower and replace after. Wash wound with soap and water when showering. Patient Instructions: Antibiotic Form, Cefazolin (By injection), Cellulitis (DC), Pain Management (DC) Stand Alone Forms: General Discharge Inf
== END 2020-01-05 11:50 | disposition home or self-care (01) ==
LOC: ANHED 23:59 → ANH3MED 01-04 04:34
PROVIDERS: Anesthesiology; Surgery; Admitting Provider Family Medicine; Emergency Provider Emergency Medicine; Visit Provider Internal Medicine
PROC: (CPT 10061; principal; 2020-01-04 14:00)
DX: A41.9 Sepsis, unspecified organism (principal); L02.211 Cutaneous abscess of abdominal wall; L03.311 Cellulitis of abdominal wall; F41.9 Anxiety disorder, unspecified; Z87.891 Personal history of nicotine dependence; E66.9 Obesity, unspecified; Z68.33 Body mass index [BMI] 33.0-33.9, adult
CPT/HCPCS: 10061; 36415; 76705; 80048; 80053; 83036; 83605; 84702; 85025; 85610; 85730; 86140; 87040; 87070; 87075; 87147; 87186; 87205; 93005; 96361; 96365; 96366; 96367; 96372; 96375; 96376; 99285; A9270; G0378; G0379; J0690; J1100; J1650; J2250; J2270; J2405; J2704; J3010; J3370; J7030; J7120

== ENCOUNTER 2022-12-30 11:59 | Emergency (ER) | payer OTHER, MEDICAID, SELFPAY ==
--- NOTE | ~2022-12-30 | CT_ITS ---
EXAMINATION: CT abdomen pelvis w con DATE: 12/30/2022 14:05 INDICATION: Right lower quadrant abdominal pain. TECHNIQUE: Computed tomography (CT) of the abdomen and pelvis was performed with 100 mL Omnipaque 350 intravenous contrast. Automated exposure control and iterative reconstruction technique were employe d. The dose-length product was 384.04 mGy-cm. COMPARISON: None. FINDINGS: The visualized portions of the lung bases demonstrate mild dependent atelectasis. No pleura l effusion. The heart size is normal. No pericardial effusion. The liver, gallbladder, spleen, pancre as, adrenal glands, and left kidney are normal. There is a 3 mm stone in right kidney. There are no d ilated loops of bowel. The appendix is normal. There are no pathologically enlarged lymph nodes. Ther e is no free intraperitoneal fluid. There are chronic bilateral L5 pars defects. There is 3 mm ria listhesis of L5 on S1. IMPRESSION: 1. No etiology for the patient's symptoms. Reviewed, dictated and finalized at location E.
[2022-12-30 12:02] VITALS: BP 126/68; PULSE 91; RESP 16; TEMP 36.3; O2SAT 100
[2022-12-30 12:25] LABS: Basophils Absolute Auto 0.1 K/mm3 (0.0-0.1); Basophils Percent Auto 0.6 % (0.2-1.2); Eosinophils Absolute Auto 0.1 K/mm3 (0-0.3); Eosinophils Percent Auto 0.9 % (0-4.4); Hematocrit 43.6 % (37.0-47.0); Hemoglobin 14.5 g/dL (12.0-15.0); Immature Granulocyte Absolute 0.04 K/mm3 (0.00-0.031); Immature Granulocyte Percent A 0.3 % (0-0.5); Lymphocytes Absolute Auto 2.03 K/mm3 (0.9-3.2); Lymphocytes Percent Auto 16.4 % (18.3-44.2); Mean Corpuscular HGB Conc 33.3 g/dl (32-36); Mean Corpuscular Hemoglobin 29.5 pg (26-34); Mean Corpuscular Volume 88.8 fl (80-100); Mean Platelet Volume 10.8 fl (7.4-10.4); Monocytes Absolute Auto 0.7 K/mm3 (0.1-0.6); Monocytes Percent Auto 5.9 % (2.6-8.5); Neutrophils Absolute Auto 9.4 K/mm3 (1.3-6.7); Neutrophils Percent Auto 75.9 % (45.5-73.1); Platelet Count Result 227 k/mm3 (150-375); Red Blood Count 4.91 M/mm3 (4.2-5.4); Red Cell Distribution Width 12.2 % (11.5-14.5); White Blood Count 12.4 K/mm3 (4.5-10.0)
[2022-12-30 12:34] LABS: Alanine Aminotransferase 18 U/L (6-35); Albumin Level 4.8 g/dL (3.5-5.1); Alkaline Phosphatase 86 U/L (38-126); Anion Gap 7 mmol/L (8-16); Aspartate Amino Transferase 20 U/L (14-36); Bilirubin,Total 1.3 mg/dL (0.2-1.3); Blood Urea Nitrogen 15 mg/dL (7-17); Calcium 9.3 mg/dL (8.4-10.2); Carbon Dioxide 31 mmol/L (22-30); Chloride 101 mmol/L (98-107); Estimated CRCL calculation 87 ml/min; Estimated Glomerular Filt Rate > 60; Glucose 107 mg/dL (65-110); Lipase 32 U/L (23-300); Potassium 3.5 mmol/L (3.4-5.0); Sodium 139 mmol/L (137-145)
[2022-12-30 12:39] LABS: Appearance Urine Clear (Clear); Bilirubin Urine Negative (Negative); Blood Urine Negative (Negative); Color Urine Yellow (Yellow); Glucose Urine UA Negative (Negative); Ketones Urine Negative (Negative); Leukocyte Esterase Ur 1+ LEU/UL (Negative); Nitrate Urine Negative (Negative); Protein Urine Negative (Negative); Specific Grav Ur 1.013 (1.001-1.035); pH Urine 7.5 (5.0-9.0)
[2022-12-30 13:14] LABS: Add Urine Microscopic? YES
[2022-12-30 13:17] LABS: RBC Urine 0-2 /hpf (0-2)
[2022-12-30 13:20] LABS: Mucus Urine Present /lpf; Squamous Epithelial Cell Urine Many /hpf (Few)
[2022-12-30 13:21] LABS: WBC Clumps Urine Present /HPF
[2022-12-30 13:41] VITALS: BP 120/74; PULSE 76; RESP 18; O2SAT 99
--- NOTE | 2022-12-30 13:46 | ED.ABDPAIN ---
HPI - Abdominal Pain General Chief Complaint: Abdominal Pain Stated Complaint: LOWER ABD PAIN X1D Time Seen by Provider: 12/30/22 12:34 History of Present Illness HPI narrative: 32-year-old female presented the emergency department for evaluation of abdominal pain. Patient did have epigastric pain that then progressed down to lower abdominal pain. Patient does have prior history of x3 but denies any prior history of appendicitis, or ovarian cyst. Related Data Home Medications Medication Instructions Recorded Confirmed sertraline 100 mg tablet (Zoloft) 100 mg PO HS 01/02/20 01/04/20 ibuprofen 600 mg tablet 600 mg PO Q4-6H PRN Fever 01/04/20 01/04/20 Allergies Allergy/AdvReac Type Severity Reaction Status Date / Time Penicillins Allergy Mild Swelling Verified 01/21/20 13:48 Review of Systems Review of Systems: All systems reviewed & are unremarkable except as noted in HPI and below PMFSH Past Medical History Medical History (Updated 12/30/22 @ 15:16 by Kolton Bailey MD) Anxiety Surgical History Surgical History (Updated 01/21/20 @ 13:51 by Danae Vaughn) History of incision and drainage Complex incision and drainage left upper quadrant abdominal wall abscess measuring approximately 12 x 10 cm 01/04/20 Previous section Family History Family History Father Diabetes mellitus Hypertension Chronic obstructive pulmonary disease Lung cancer Mother Hypertension Social History Social History Years smoked: 1 Smoking status: Former smoker Tobacco type: cigarettes Alcohol intake: current Drinks per week: 3 Substance use type: marijuana Last use: unknown Gender identity (if verbalized by the patient): Female Spiritual care concerns: No Exam Narrative: APPEARANCE: Well appearing, no pain, no distress, well-nourished. HEAD: normocephalic, atraumatic. EYES: PERRLA/EOMI, conjunctivae clear. NOSE: Normal no drainage NECK: Supple. No adenopathy, no masses. RESPIRATORY: Airway patent, respirations nonlabored. Clear to auscultation bilaterally, no rales, rhonchi, wheezing. CARDIOVASCULAR: Regular rate and rhythm without murmurs rubs or gallops. ABDOMINAL: Suprapubic and right lower quadrant tenderness to palpation. MUSCULOSKELETAL: Moves all extremities. Strength/ROM intact, No edema, No calf tenderness. NEURO: Alert. Cranial nerves II through XII intact. Grossly intact SKIN: Warm, dry. Normal Color Course Course Emergency Course: 32-year-old female presented the ED for evaluation of epigastric and lower abdominal pain. Patient is afebrile but does have a leukocytosis of 12.4. Patient's UA is concerning for an infection. Patient does have reproducible right buttock tenderness so a CT scan is being ordered to rule out for appendicitis. Patient did request medication for pain control. Patient was treated with IV Dilaudid and IV normal saline. CT scan showed no acute intracranial abdominal abnormality. UA was concerning for infection. Patient was started on antibiotics for urinary tract infection. Patient was updated on the results of her work-up and plan for treatment. All questions and concerns were addressed Vital Signs Vital signs: Vital Signs Temperature 97.3 F L 12/30/22 12:02 Pulse Rate 91 12/30/22 12:02 Respiratory Rate 16 12/30/22 12:02 Blood Pressure 126/68 12/30/22 12:02 Pulse Oximetry 100 12/30/22 12:02 Oxygen Delivery Room Air 12/30/22 12:02 Temperature 98.3 F 12/30/22 15:29 Pulse Rate 78 12/30/22 15:29 Respiratory Rate 16 12/30/22 15:29 Blood Pressure 122/78 12/30/22 15:29 Pulse Oximetry 99 12/30/22 15:29 Oxygen Delivery Room Air 12/30/22 12:02 MDM - Abdominal Pain Differential Diagnosis Differential diagnosis: Likely abdominal pain, acute appendicitis, constipation, diverticulitis,
[2022-12-30] MEDS: HYDROmorphone HCL INJ (*CRX) 1 MG/ML SYR 0.5 MG IV PUSH (13:55)
[2022-12-30] MEDS: SODIUM CHLORIDE 0.9% IV 1,000 ML 999 ML IV CONT (13:55)
--- NOTE | 2022-12-30 13:56 | PC.NURSE ---
pt to ct via stretcher at this time
[2022-12-30 14:30] VITALS: BP 118/76; PULSE 74; RESP 16; TEMP 36.7; O2SAT 99
[2022-12-30] MEDS: levoFLOXacin 500 MG TABLET PO (15:17)
[2022-12-30 15:29] VITALS: BP 122/78; PULSE 78; RESP 16; TEMP 36.8; O2SAT 99
== END 2022-12-30 15:31 | disposition home or self-care (01) ==
PROVIDERS: Emergency Medicine; Emergency Provider Emergency Medicine
DX: N39.0 Urinary tract infection, site not specified (principal); R10.13 Epigastric pain; F41.9 Anxiety disorder, unspecified; Z87.891 Personal history of nicotine dependence
CPT/HCPCS: 36415; 74177; 80053; 81001; 81025; 83690; 85025; 87086; 87088; 96361; 96374; 99284; A9270; J1170; J7030; Q9967

== ENCOUNTER 2025-02-05 14:42 | Emergency (ER) | payer OTHER, SELFPAY ==
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
--- OUTSIDE RECORDS SUMMARY | 2025-02-05 15:08 | XMS_ITS | Clinical Summary ---
Author Organization [facility] Address [address] [place] [address] Care Team Providers Care Engineer Of System Development Name Role Phone Ana James MD Primary Care Provider [phone] Source Comments [facility],non-owned Affiliates and Associated Physician Practices is amultiple site organization consisting of ambulatory clinics and hospital sitesin [place], [place], [place] and [place]. This disclosure is being madepursuant to the Care Everywhere program and may not contain all information available regarding this patient. Last updated 18.[facility] Allergies Active Allergy Reactions Criticality Noted Date Comments Penicillins 02/19/2017 Medications * This document contains information received from the source organization and may not represent a complete record from that organization. * Be aware that medications may not be up to date on this document. Alwaysverify current medications with the patient. SERTRALINE HCL PO Active GT-Czn-HC-Omeg a-3 ( GUMMIES/DHA & FA PO) Active diphenhydrAMIN E (BENADRYL) 25 MG tablet Take 25 mg by mouth at bedtime Active acetaminophen (TYLENOL) 325 MG tablet Take 325 mg by mouth every 4 hours as needed for Fever or Pain Maximum allowable Acetaminophen amount = 4 Grams (4000 mg) / 24 hours. Active Active Problems Patient Care Coordination No te Formatting of this note migh t be different from the original. Nopp/mfcc 09/2017 Problem Noted Date Diagnosed Date Depression screen 12/12/2017 Overview (12/12/2017): 12/12/2017 Violet Hawthorne was screened for depression using the [place] Depression Scale (EPDS) at her [facility] initial evaluation on 12/12/2017. Her initial score at baseline was 4. Based off of her score of 4, Violet will not receive follow up call. Patient will continue to be screened throughout , at intervals no closer than two weeks, for continued surveillance and early identification of depression until delivery. Patient reports mental health history. Diagnoses include anxiety. Abnormal ultrasound 10/06/2017 complicated by cerebral ventricu lomegaly 10/06/2017 Resolved Problems Problem Noted Date Diagnosed Date Resolved Date abnormality in previou s - unilateral ventriculomegaly 11/30/2017 01/12/2018 Overview (12/14/2017): Images from the original note were not included. GROUP HOME PATIENT--PLEASE CALL [phone] IF TRIAGED OR ADMITTED Care Provider: Dr. Harrington- OB; Referred by Dr. Ferrara at [facility] consultants involved: Trish- Nurse Coordinator; Neurosurgery- Jessica Brenner Diagnosis: unilateral ventriculomegaly; L- 14mm; R- 10mm follow up: head MRI with Neurosurgery f/u General Adjuster: Dr. Adia Joseph Planned surveillance: Weekly BPP/NST at [place]. Next growth US on 12/20 Delivery location, mode, and GA: Repeat on 12/[address] [place] [address] Harrington Autopsy indicated: Genetics note: Student Specialist Concerns: Care plan based on evaluation and is subject to change based on assessment. See Images or Cardiac under Chart Review for US/ ECHO/ MRI reports. 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 Gender Identity Not on file Sexual Orientation Not on file Last Filed Vital Signs Vital Sign Reading Time Taken Comments Blood Pressure 112/82 03/25/2019 10:33 AM CDT Pulse 127 03/25/2019 10:33 AM CDT Temperature 38 C (100.4 F) 03/25/2019 10:33 AM CDT Respiratory Rate 16 03/25/2019 10:33 AM CDT Oxygen Saturation 98% 03/25/2019 10:33 AM CDT Inhaled Oxygen Concentration - - Weight 81.6 kg (180 lb) 03/25/2019 10:33 AM CDT Height 160 cm (5' 3) 03/25/2019 10:33 AM CDT Body Mass Index 31.89 03/25/2019 10:33 AM CDT Plan of Treatment Health Maintenance Due Date Last Done Comments HIV SCREENING 2005 HEPATITIS C SCREENING 11/23/2008 DTAP/TDAP/TD VACCINES (1 - Tdap) 2009 HEPATITIS B VACCINE (1 of 3 - 19+ 3-dose series) 2009 HPV VACCINE (1 - 3-dose SCDM series) 2017 COVID-19 VACCINE (1 - 2023-2 5 season) 2024 DEPRESSION SCREENING 06/20/2024 INFLUENZA VACCINE (#1) 2025 ZOSTER VACCINE (1 of 2) 2040 HIB VACCINE Aged Out No longer eligi ble based on patient's age to complete this topic MENINGOCOCCAL (Group B) VACC INE SHARED DECISION-MAKING Aged Out No longer eligibl e based on patient's age to complete this topic MENINGOCOCCAL GROUPS A/C/Y/W VACCINE Aged Out No longer eligible b ased on patient's age to complete this topic PNEUMOCOCCAL VACCINE Aged Out No long er eligible based on patient's age to complete this topic Insurance MEDICAID - [facility] [address] [place] [address] [facility]AN [facility] Care Teams Engineer Of System Development Relationship Specialty Start Date End Date Ana James MD [address] [place] [address] [address] [place] [address] PCP - General 10/10/17
--- OUTSIDE RECORDS SUMMARY | 2025-02-05 15:09 | XMS_ITS | Clinical Summary ---
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
[2025-02-05] MEDS: TETANUS,DIPHTHERIA,AC PERTUSSIS ADULT (0.5 ML) BOOSTRIX IM (15:17)
[2025-02-05] MEDS: METOCLOPRAMIDE HCL INJ 10 MG/2 ML VIAL IM (15:41)
[2025-02-05 15:45] VITALS: BP 113/65; PULSE 81; RESP 20; TEMP 36.8; O2SAT 97
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
== END 2025-02-05 15:50 | disposition home or self-care (01) ==
LOC: ANHED 15:32
PROVIDERS: Emergency Provider Emergency Medicine
DX: S06.0X0A Concussion without loss of consciousness, initial encounter (principal); S01.01XA Laceration without foreign body of scalp, initial encounter; Z23 Encounter for immunization; F41.9 Anxiety disorder, unspecified; Z87.891 Personal history of nicotine dependence; Z79.899 Other long term (current) drug therapy; W22.8XXA Striking against or struck by other objects, initial encounter
CPT/HCPCS: 12002; 70450; 90471; 90715; 96372; 99284; J2765